=== PATIENT | male | born 1965 | race Caucasian/White ===

== ENCOUNTER 2020-05-07 22:39 | Emergency (ER) | payer OTHER ==
[~2020-05-07] VITALS: Ht 185.4 cm; Wt 127.5 kg
[2020-05-07 22:49] VITALS: Ht 185.4 cm; Wt 127.5 kg
[2020-05-07] MEDS ORDERED: CIPRO500 MG PO (23:57)
[2020-05-07] MEDS ORDERED: KEF500 PO (23:57)
[2020-05-08 00:14] VITALS: BP 162/71
== END 2020-05-08 00:14 | disposition home or self-care (01) ==
LOC: ED 22:39
DX: S92.511A Displaced fracture of proximal phalanx of right lesser toe(s), initial encounter for closed fracture (principal); S91.331A Puncture wound without foreign body, right foot, initial encounter; I10 Essential (primary) hypertension; E11.9 Type 2 diabetes mellitus without complications; Z98.890 Other specified postprocedural states; W22.8XXA Striking against or struck by other objects, initial encounter; Y93.89 Activity, other specified; Y92.89 Other specified places as the place of occurrence of the external cause; Y99.8 Other external cause status
CPT/HCPCS: 90715